=== PATIENT | female | born 1965 | race Caucasian/White ===

== ENCOUNTER 2022-02-27 12:37 | Outpatient (CLI) | payer OTHER, SELFPAY ==
--- NOTE | 2022-02-27 13:00 | CRLHL7_ITS ---
For Patients: As a result of the Century Cures Act, medical imaging exams and procedure reports are released immediately into your electronic medical record. You may view this report before your referring provider. If you have questions, please contact your health care provider. BILATERAL MAMMOGRAM WITH COMPUTER-AIDED DETECTION AND TOMOSYNTHESIS TECHNIQUE: CC and MLO views were obtained. These mammographic images have been obtained using full-field digital technique. These mammographic images were interpreted with the benefit of computer-aided detection. Breast Tomosynthesis was used in this interpretation. COMPARISON FILM: 03/18/21 (LEFT DIAG AND US) FINDINGS: The breasts are heterogeneously dense, which may obscure small masses IMPRESSION: There is no radiographic evidence for malignancy. ASSESSMENT: BI-RADS Category 2: Benign RECOMMENDATION: Routine screening mammogram in 1 year. A lay language report of this examination will be provided to the patient. Saúl Matthews M.D. Diagnostic Radiologist [email or web address] PRANEETH/Dictated by: Saúl Matthews MD @ 03/17/2022 9:22:00 AM (Electronically Signed)
== END 2022-02-27 12:38 | disposition home or self-care (01) ==
LOC: MAMMO 12:38
PROVIDERS: PCP Family Medicine; Visit Provider Family Medicine
DX: Z12.31 Encounter for screening mammogram for malignant neoplasm of breast (principal); R92.2 Inconclusive mammogram
CPT/HCPCS: 77063; 77067

== ENCOUNTER 2022-03-20 08:35 | Outpatient (CLI) | payer OTHER, SELFPAY ==
--- NOTE | 2022-03-20 10:07 | W.ANESCHARGE ---
Anesthesia Charges Start Date/Time Anesthesia Start Date: 03/20/22 Anesthesia Start Time: 09:10 Stop Date/Time Anesthesia Stop Date: 03/20/22 Anesthesia Stop Time: 10:05 Summary Emergency: No
--- NOTE | 2022-03-20 10:29 | W.ANESCHARGE ---
Anesthesia Charges Start Date/Time Anesthesia Start Date: 03/20/22 Anesthesia Start Time: 09:10 Stop Date/Time Anesthesia Stop Date: 03/20/22 Anesthesia Stop Time: 10:05 Summary Emergency: No
== END 2022-03-20 08:36 | disposition home or self-care (01) ==
LOC: OP CLINIC 08:36
PROVIDERS: PCP Family Medicine; Visit Provider Surgery
DX: Z12.11 Encounter for screening for malignant neoplasm of colon (principal); K63.5 Polyp of colon; K64.8 Other hemorrhoids; Z86.010 Personal history of colon polyps
CPT/HCPCS: 45385; 811; 88305; J2704

== ENCOUNTER 2023-05-05 15:15 | Outpatient (CLI) | payer OTHER, SELFPAY ==
--- NOTE | 2023-05-05 15:20 | CRLHL7_ITS ---
For Patients: As a result of the Century Cures Act, medical imaging exams and procedure reports are released immediately into your electronic medical record. You may view this report before your referring provider. If you have questions, please contact your health care provider. BILATERAL SCREENING MAMMOGRAM WITH COMPUTER-AIDED DETECTION AND TOMOSYNTHESIS TECHNIQUE: CC and MLO views were obtained. These mammographic images have been obtained using full-field digital technique. These mammographic images were interpreted with the benefit of computer-aided detection. Breast Tomosynthesis was used in this interpretation. COMPARISON FILM: 02/27/22, 03/18/21 (LT). FINDINGS: The breasts are heterogeneously dense, which may obscure small masses IMPRESSION: There is no radiographic evidence for malignancy. ASSESSMENT: BI-RADS Category 1: Negative RECOMMENDATION: Routine screening mammogram in 1 year. A lay language report of this examination will be provided to the patient. Saúl Matthews M.D. Diagnostic Radiologist [email or web address] PRANEETH/Dictated by: Saúl Matthews MD @ 05/06/2023 11:57:00 AM (Electronically Signed)
== END 2023-05-05 15:16 | disposition home or self-care (01) ==
LOC: MAMMO 15:18
PROVIDERS: PCP Family Medicine; Visit Provider Family Medicine
DX: Z12.31 Encounter for screening mammogram for malignant neoplasm of breast (principal); R92.2 Inconclusive mammogram
CPT/HCPCS: 77063; 77067

== ENCOUNTER 2023-05-19 09:14 | Outpatient (CLI) | payer OTHER, SELFPAY | END 2023-05-19 09:15 | disposition home or self-care (01) | PROVIDERS: PCP Family Medicine; Visit Provider Family Medicine | DX: Z00.00 Encounter for general adult medical examination without abnormal findings (principal); E78.00 Pure hypercholesterolemia, unspecified; Z86.39 Personal history of other endocrine, nutritional and metabolic disease | CPT/HCPCS: 80053; 80061; 82306 ==

== ENCOUNTER 2024-08-23 15:27 | Outpatient (CLI) | payer OTHER, SELFPAY ==
--- NOTE | 2024-08-23 16:00 | CRLHL7_ITS ---
For Patients: As a result of the Century Cures Act, medical imaging exams and procedure reports are released immediately into your electronic medical record. You may view this report before your referring provider. If you have questions, please contact your health care provider. BILATERAL SCREENING MAMMOGRAM WITH COMPUTER-AIDED DETECTION AND TOMOSYNTHESIS TECHNIQUE: CC and MLO views were obtained. These mammographic images have been obtained using full-field digital technique. These mammographic images were interpreted with the benefit of computer-aided detection. Breast Tomosynthesis was used in this interpretation. COMPARISON FILM: 05/05/23, 02/27/22, 03/18/21. FINDINGS: The breasts are heterogeneously dense, which may obscure small masses. IMPRESSION: There is no radiographic evidence for malignancy. ASSESSMENT: BI-RADS Category 1: Negative RECOMMENDATION: Routine screening mammogram in 1 year. A lay language report of this examination will be provided to the patient. Saúl Matthews M.D. Diagnostic Radiologist [email or web address] SP/Dictated by: Saúl Matthews MD @ 08/24/2024 9:48:00 AM (Electronically Signed)
== END 2024-08-23 15:28 | disposition home or self-care (01) ==
LOC: MAMMO 15:28
PROVIDERS: PCP Family Medicine; Visit Provider Family Medicine
DX: Z12.31 Encounter for screening mammogram for malignant neoplasm of breast (principal); R92.333 Mammographic heterogeneous density, bilateral breasts
CPT/HCPCS: 77063; 77067

== ENCOUNTER 2024-09-05 10:06 | Outpatient (CLI) | payer OTHER, SELFPAY | END 2024-09-05 10:07 | disposition home or self-care (01) | PROVIDERS: PCP Family Medicine; Visit Provider Family Medicine | DX: Z00.00 Encounter for general adult medical examination without abnormal findings (principal); E78.00 Pure hypercholesterolemia, unspecified; N95.1 Menopausal and female climacteric states; R23.2 Flushing; Z86.32 Personal history of gestational diabetes; Z13.21 Encounter for screening for nutritional disorder | CPT/HCPCS: 80053; 80061; 82306; 82671; 83001; 83002; 84144 ==

== ENCOUNTER 2025-01-28 20:04 | Emergency (ER) | payer OTHER, SELFPAY ==
--- OUTSIDE RECORDS SUMMARY | 2017-03-18 11:00 | XMS_ITS | Continuity of Care Document ---
Author Organization [facility] Address [address] [address] [place] [address] Phone Care Team Providers Care Jack Machine Operator Name Role Phone Link Neil WOODS Unavailable Unavailable Allergies, Adverse Reactions, Alerts Substance Reaction Status Criticality Sulfa (Sulfonamide Antibiotics) Active No Information Medications Medication Instructions Dosage Effective Dates (start - stop) Status Comments DHEA 25 mg capsule - Active progesterone micronized 100 mg capsule take 2 capsule by oral route every day in the evening 200 MG - Active multivitamin tablet take 1 tablet by ORAL route every day 1 tablet - Active MiralaxBisacodylMagCit Colon Prep Use as directed - No Longer Active MiralaxBisacodylMagCit Colon Prep Use as directed - No Longer Active Procedures Procedure Date Colonoscopy Flex; W/remov Les- 17 Level Iv-surg Path Gross/micro 17 Breath Hydrogen Test Offic/outpt E&m Estab Mod-hi 2 12 Routine Serum Collection [id number] Bld Ct; Hg/pltlt Ct Auto/compl 12 Thyroid Stim Hormone Colonoscopy Flex; W/bx 1/mx Level Iv-surg Path Gross/micro 11 Advance Directives Directive Yes / No Effective Date File Name No Information Encounters Encounter Description Practice Location Reason(s) For Visit Diagnoses Date Provider Providers Copied on Encounter [facility], [address] [address], [place], [id number], [place] tel:[phone] [place] [facility] Colorectal polyp detected on colon[facility]Int [facility] for screening for malignant neoplasm of colonBenign neoplasm of descending colonPersonal history of colonic polyps Link MD Trejo. [address] [place] [address], [id number], [place]. tel:[phone] Referring Provider: Haley Ngo, [address] [place] [address], [address]. tel:[phone] [facility], [address] [address], [place], [id number], [place] tel:[phone] No Information 7 No Information Referring Provider: Haley Ngo, [address] [place] [address], [address]. tel:[phone] [facility], [address] [address], [place], [id number], [place] tel:[phone] [facility] No Information Link MD Trejo. [address] [place] [address], [place], [id number], [place]. tel:[phone] Referring Provider: Referral Self, USE FOR SELF REFERRALS. [facility], [address] [address], [place], [id number], [place] tel:[phone] [facility] DiarrheaFlatul /eructat/gas Pain 2 No Information Referring Provider: Referral Self, USE FOR SELF REFERRALS. Offic/outpt E&m Estab Mod-hi 2 [facility], [address] [address], [place], [id number], [place] tel:[phone] [facility] Abdominal pain (chief complaint) Diarrhea (chief complaint) DiarrheaFlatul /eructat/gas Pain 2 No Information Referring Provider: Referral Self, USE FOR SELF REFERRALS. [facility], [address] [address], [place], [id number], [place] tel:[phone] Nicole [facility] Polyp-intes/re ct/stom-unc BehColon Cancer ScreeningBenig n Neoplasm ColonColon Cancer ScreeningBenig n Neoplasm Colon Filemon Ibanez. [address] [facility] [address], [place], [place], [id number], . tel:[phone] Referring Provider: Referral Self, USE FOR SELF REFERRALS. Family History Family Member Type Diagnosis Age At Onset First degree family history Problem (finding) Cancer, breast First degree family history Problem (finding) celiac disease First degree family history Problem (finding) No history of Cancer, colon First degree family history Problem (finding) No history of Crohn's First degree family history Problem (finding) No history of Ulcerative Colitis First degree family history Problem (finding) alcoholism First degree family history Problem (finding) peptic ulceration First degree family history Problem (finding) cancer of the esophagus First degree family history Problem (finding) No Family history of No history of Colon Polyps Payers Payer name Insurance type Covered green party ID Authoriza tion(s) No Information Social History Type Description Quantity Date Captured Comments Alcohol Use Details Unknown Caffeine Use Details Unknown Tobacco Use Status No Information Smoking Status Never smoker Sex Female Vital Signs Date / Time: Height Weight BMI Pulse Rate Blood Pressure Temperature Respiratory Rate Body Surface Area Head Circumference Head Circ. Percentile Wt./Jake. Percentile BMI percentile Pulse Ox Inhaled Ox 3:34 PM 62.00 in 56.240 kg (124.00 lbs) 22.7 0 kg/m eter (2) 82 /min 115/77 mm[Hg] 0.00 F 16 /min 99 % Chief Complaint And Reason For Visit No Information Reason For Referral Reason For Referral No Information History Of Present Illness Encounter Date Complaint History Of Prese nt Illness No Information Functional Status Date Functional Assessmen t No Information Instructions Date Instruction Additional Infor smitha Colon Cancer Prevention Related to Colorectal polyp detected on colonoscopy Colon Polyps Related to Color ectal polyp detected on colonoscopy Hemorrhoids Related to Color ectal polyp detected on colonoscopy High Fiber Diet Related to Color ectal polyp detected on colonoscopy Assessments Type Assessment Date assessment Colorectal polyp detected on col onoscopy assessment Internal hemorrhoids Patient Care Teams Name Effective Dates (start - stop) Status Members No Information
--- OUTSIDE RECORDS SUMMARY | 2017-03-18 11:00 | XMS_ITS | Continuity of Care Document ---
Author Organization [facility] Address [address] [address] [place] [address] Phone Care Team Providers Care Button Breaker Name Role Phone Link Neil WOODS Unavailable [...] Diagnoses Date Provider Providers Copied on Encounter [facility], [address] [address], [place], [id number], [place] tel:[phone] [place] [facility] Colorectal polyp detected on colonoscopyInt [facility] oun[facility] for screening for malignant neoplasm of colonBenign neoplasm of descending colonPersonal history of colonic polyps Link MD Trejo. [address] [place] [address], [id number], [place]. tel:[phone] Referring Provider: Haley Ngo, [address] [place] [address], [address]. tel:[phone] [facility], [address] [address], [place], [id number], [place] tel:[phone] No Information 7 No Information Referring Provider: Haley Ngo, [address] [place] [address], [address]. tel:[phone] [facility], [address] [address], [place], [id number], [place] tel:[phone] [facility] No Information Link MD Trejo. [address] [place] [address], [place], [id number], [place]. tel:[phone] Referring Provider: Referral Self, USE FOR SELF REFERRALS. [facility], [address] [address], [place], [id number], [place] tel:[phone] [facility] DiarrheaFlatul /eructat/gas Pain 2 No Information Referring Provider: Referral Self, USE FOR SELF REFERRALS. Offic/outpt E&m Estab Mod-hi 2 [facility], [address] [address], [place], [id number], [place] tel:[phone] [facility] Abdominal pain (chief complaint) Diarrhea (chief complaint) DiarrheaFlatul /eructat/gas Pain 2 No Information Referring Provider: Referral Self, USE FOR SELF REFERRALS. [facility], [address] [address], [place], [id number], [place] tel:[phone] Nicole [facility] End[facility] Polyp-intes/re ct/stom-unc BehColon Cancer ScreeningBenig n Neoplasm ColonColon Cancer ScreeningBenig n Neoplasm Colon Filemon Ibanez. [address] [facility] [address], [place], [place], [id number], . tel:[phone] Referring Provider: Referral Self, USE FOR SELF [...] Polyps Payers Payer name Insurance type Covered alliance party ID Authoriza tion(s) No Information Social [...]
--- OUTSIDE RECORDS SUMMARY | 2025-01-28 20:06 | XMS_ITS | Encounter Summary ---
Author Organization [facility] [employer] [facility] Address [address] [place] [address] Care Team Providers Care Carpet Inspector Name Role Phone Tariq Vincent MD Primary Care Provider [phone] Encounter Details Date Type Department Care Team (Late st Contact Info) Description 06/04/2023 [facility] [address] [place], [place] [id number] Social History Tobacco Use Types Packs/Day Years Used Date Smoking Tobacco: Never Smokeless Tobacco: Never Depression (PHQ-9) Answer Date Recorded Last PHQ-9 Score Not on file 02/04/2022 Thoughts of self harm Not on file 02/04/2022 Comments Unknown Sex and Gender Information Value Date Recorded Sex Assigned at Not on file 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
--- OUTSIDE RECORDS SUMMARY | 2025-01-28 20:06 | XMS_ITS | Encounter Summary ---
Author Organization [employer] [facility] Address [address] [place] [address] Care Team Providers Care Print Buyer Name Role Phone Unknown, Provider Primary Care Provider Tariq Bryan MD Primary Care Provider Tariq Vincent MD Primary Care Provider [phone] Encounter Details Date Type Department Care Team (Late st Contact Info) Description 02/04/[address] [address] Social History Tobacco Use Types Packs/Day Years Used Date Smoking Tobacco: Never Assessed Depression (PHQ-9) Answer Date Recorded Last PHQ-9 Score Not on file 02/04/2022 Thoughts of self harm Not on file 02/04/2022 Comments Unknown Sex and Gender Information Value Date Recorded Sex Assigned at Not on file Legal Sex 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 [address] PCP - General 02/04/22 02/22/23 Tariq Vincent MD [address] [place] [address] PCP - General Family Medicine 02/23/23 06/03/23 Tariq Vincent MD [address] [place] [address] PCP - General Family Medicine 06/04/23 documented as of this encounter Additional Source Comments PLEASE NOTE: Replies to this message will not be received.[facility] and [facility]
--- OUTSIDE RECORDS SUMMARY | 2025-01-28 20:06 | XMS_ITS | Referral Summary ---
Author Organization [employer] [facility] Address [address] [place] [address] Care Team Providers Care Supervisor Unloading Name Role Phone Tariq Vincent MD Primary Care Provider [phone] Allergies Active Allergy Reactions Criticality Noted Date Comments Sulfa (Sulfonamide Antibiotics) Rash Medium 01/16 Medications other (unlisted) Active Nutrients Centrum Silver 1 tablet daily DHEA- increase 5 mg daily in AM SL Multi Vit. Daily NuAdapt Vit. D3 10,000 IU daily Vitamin B Complex 1 daily Active bi-estrogen (BIEST) 5 mg/g, testosterone 3 mg/g topical cream/gelIndicati ons:Menopause 0.5gm to thin skin area qam, as dir. 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) 02/04/2022 Weight gain 02/04/2022 Estrogen excess 02/04/2022 Social History Tobacco Use Types Packs/Day Years Used Date Smoking Tobacco: Never Smokeless Tobacco: Never Tobacco Cessation:Counseling Given: Not Answered Depression (PHQ-9) Answer Date Recorded Last PHQ-9 Score Not on file 02/04/2022 Thoughts of self harm Not on file 02/04/2022 Comments Unknown Sex and Gender Information Value Date Recorded Sex Assigned at Not on file 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
--- OUTSIDE RECORDS SUMMARY | 2025-01-28 20:06 | XMS_ITS | Clinical Summary ---
Author Organization [employer] Address [address] [place] [address] Care Team Providers Care Building Service Worker Name Role Phone No Ref-Primary, Physician Primary Care Provider Allergies Active Allergy Reactions Criticality Noted Date Comments Sulfa Antibiotics 09/28/2022 Itching and rash Medications GAVILYTE-G 236 g suspension DRINK 240 ML (8 OZ) EVERY 10 MINUTES FOLLOWING INSTRUCTIONS IN CLINIC 2 Active Hormone Cream Base (HRT CREAM BASE) CREA Topical, 0 Refill(s), Type: Maintenance 1 Active Immunizations Immunization Administration Dates Next Due TD,PF 7+ (Tenivac) 12/11/2003 Social History Tobacco Use Types Packs/Day Years Used Date Smoking Tobacco: Never Passive Smoke Exposure: Never Smokeless Tobacco: Never Tobacco Cessation:Counseling Given: Not Answered Adolescent Education Answer Date Record ed Getting School Help Needed Not on file 05/10 Comments No Sex and Gender Information Value Date Recorded Sex Assigned at Not on file Legal Sex Female 3:21 AM AUTO LEASING MANAGER Gender Identity Not on file Sexual Orientation Not on file Last Filed Vital Signs Vital Sign Reading Time Taken Comments Blood Pressure 134/84 06/07/2023 2:37 PM CDT Pulse 80 06/07/2023 2:37 PM CDT Temperature 36.5 C (97.7 F) 06/07/2023 2:37 PM CDT Respiratory Rate 16 09/28/2022 2:09 PM AUTO LEASING MANAGER Oxygen Saturation 100% 06/07/2023 2:37 PM CDT Inhaled Oxygen Concentration - - Weight - - Height - - Body Mass Index - - Plan of Treatment Health Maintenance Due Date Last Done Comments ADVANCE CARE PLANNING 1965 ANNUAL REVIEW OF HM ORDERS 1963 CT COLONOGRAPHY 1963 FIT 1963 FLEX SIG 1965 MAMMO SCREENING 1963 sDNA (Cologuard) 1965 YEARLY PREVENTIVE VISIT 11/28/1966 COLONOSCOPY 11/28/1973 COLORECTAL CANCER SCREENING 11/28/1973 HIV SCREENING 11/28/1978 HEPATITIS C SCREENING 11/28/1981 DIABETES SCREENING 09/21/2005 09/21/2002 PAP 09/21/2005 09/21/2002 LIPID 09/21/2007 09/21/2002 PNEUMOCOCCAL VACCINE 50+ YEARS (2 of 2 - PCV) 05/14/2019 05/14/2018, 02/24/2018 COVID-19 VACCINE ( season) 2024 05/19/2023, 05/02/2022, 07/10/2021, Additional history exists PHQ-2 (once per calendar year) 2024 INFLUENZA VACCINE (Season Ended) 2025 05/19/2023, 05/02/2022, 06/05/2021, Additional history exists DTAP/TDAP/TD VACCINE (3 - Td or Tdap) 03/07/2032 03/07/2022, 03/22/2014, 12/11/2003, Additional history exists RSV VACCINE (1 - 1-dose 75+ series) 11/28/2038 ZOSTER VACCINE Completed 05/14/2018, 02/24/2018 HPV VACCINE Aged Out No longer eligi ble based on patient's age to complete this topic MENINGITIS VACCINE Aged Out No longer eligible based on patient's age to complete this topic Procedures Procedure Name Priority Date/Time Associated Diagnosis Comments HCL GLUCOSE Routine 09/21/2002 1:53 PM AUTO LEASING MANAGER CL AFF A.M.A. LIPID PANEL Routine 09/21/2002 1:53 PM AUTO LEASING MANAGER HCL PAP THIN LAYER SCREEN Routine 09/21/2002 12:00 AM AUTO LEASING MANAGER from Last 3 Months or Most Recently Relevant to Health Maintenance Results * GLUCOSE (09/21/2002 1:53 PM AUTO LEASING MANAGER) Glucose 80 60 - 115 mg/dL [facility] 09/21/2002 1:53 PM AUTO LEASING MANAGER 09/21/2002 1:58 PM AUTO LEASING MANAGER Jp Arroyo MD LABORATORY Final Result Performing Organization Address [facility] de Phone Number [address] [address] * (ABNORMAL) A.M.A. LIPID PANEL (09/21/2002 1:53 PM AUTO LEASING MANAGER) Cholesterol 208(H) <200 mg/dL [facility] Comment: Cholesterol Reference Range: <200 The NCEP recommends further evaluation of: 1. Patients with cholesterol greater than 200 mg/dL if additional risk factors are present. 2. All patients with a cholesterol greater than 240 mg/dL. Triglycerides 78 <150 mg/dL [facility] HDL Cholesterol 64 >40 mg/dL [facility] LDL Cholesterol Calculated 128 <130 mg/dL [facility] VLDL-Cholesterol 16 0 - 30 mg/dL [facility] Cholesterol/HDL Ratio 3 0 - 5 [facility] 09/21/2002 1:53 PM AUTO LEASING MANAGER 09/21/2002 1:58 PM AUTO LEASING MANAGER Jp Arroyo MD LABORATORY Final Result Performing Organization Address [facility] Co de Phone Number [address] [address] * PAP THIN LAYER SCREEN (09/21/2002 12:00 AM AUTO LEASING MANAGER) Copath Report Patient Name: JULIANA AGGARWAL MR#: [id number] Specimen #: [id number] Collected: 09/21/02 Received: 09/29/02 Reported: 10/05/02 08:22 Ordering Phy(s): JP ARROYO SPECIMEN/STAIN PROCESS: Pap thin layer prep screening Pap-Cyto x 1, Reflex HPV x 1 SOURCE: Vaginal Pap thin layer prep screening SPECIMEN ADEQUACY: Satisfactory for evaluation. -Transitional zone component absent. CYTOLOGIC INTERPRETATION: Negative for Intraepithelial Lesion or Malignancy Electronically signed out by: MICHAEL Lara (ASCP) Processed and screened at [facility] CLINICAL HISTORY: Complete Hysterectomy, COPATH 09/21/2002 09/29/2002 3:5 8 PM AUTO LEASING MANAGER Jp Arroyo MD LABORATORY Final Result COPATH from Last 3 Months or Most Recently Relevant to Health Maintenance Insurance [employer] Care Teams Building Service Worker Relationship Specialty Start Date End Date No Ref-Primary, Physician PCP - General 06/07/23
--- OUTSIDE RECORDS SUMMARY | 2025-01-28 20:06 | XMS_ITS | Encounter Summary ---
Author Organization [facility] Address [address] [place] [address] Care Team Providers Care Fender Mechanic Name Role Phone Tariq Vincent MD Primary Care Provider [phone] Tariq Vincent MD Primary Care Provider [phone] Encounter Details Date Type Department Care Team (Late st Contact Info) Description 03/24/[address] 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 Gender Identity Not on file Sexual Orientation Not on file documented as of this encounter Plan of Treatment Not on file documented as of this encounter Procedures Procedure Name Priority Date/Time Associated Diagnosis Comments LAB/OUTSIDE LAB - S 03/24/2023 9:34 AM CDT documented in this encounter Results * LAB/OUTSIDE LAB - S (03/24/2023 9:34 AM CDT) us Smph Scan PROCEDURE NOTE Final Result documented in this encounter Visit Diagnoses Not on filedocumented in this encounter Care Teams Fender Mechanic Relationship Specialty Start Date End Date Tariq Vincent MD [address] [place] [address] PCP - General Family Medicine 02/23/23 06/03/23 Tariq Vincent MD [address] [place] [address] PCP - General Family Medicine 06/04/23 documented as of this encounter Additional Source Comments PLEASE NOTE: Replies to this message will not be received.[facility] and [facility]
--- OUTSIDE RECORDS SUMMARY | 2025-01-28 20:06 | XMS_ITS | Encounter Summary ---
Author Organization [facility] Address [address] [place] [address] Care Team Providers Care Heat Plant Specialist Name Role Phone Unknown, Provider Primary Care Provider Tariq Bryan MD Primary Care Provider [phone] Tariq Vincent MD Primary Care Provider [phone] Encounter Details Date Type Department Care Team (Late st Contact Info) Description 01/08/2022 Scan [facility] [address], [place] [address] Social History Tobacco Use Types Packs/Day Years Used Date Smoking Tobacco: Never Assessed Comments Unknown Sex and Gender Information Value Date Recorded Sex Assigned at Not on file 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 [address] PCP - General 02/04/22 02/22/23 Tariq Vincent MD [address] [place] [address] PCP - General Family Medicine 02/23/23 06/03/23 Tariq Vincent MD [address] [place] [address] PCP - General Family Medicine 06/04/23 documented as of this encounter Additional Source Comments PLEASE NOTE: Replies to this message will not be received.[facility] and [facility]
--- OUTSIDE RECORDS SUMMARY | 2025-01-28 20:06 | XMS_ITS | Clinical Summary ---
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 Gender Identity Not on file Sexual Orientation Not on file Plan of Treatment Health Maintenance Due Date Last Done Comments HPV Testing 1965 Hepatitis C Testing 1965 Depression Screening 1975 HIV Screen 11/28/1978 Cervical Cancer Screening 11/28/1984 Lipids Standard 11/28/[address] Colonography 11/28/2008 Colonoscopy 11/28/2008 Colorectal Cancer Screening 11/28/2008 Fecal Immunochemical DNA Test (FIT-DNA) 11/28/2008 Fecal Immunochemical Test (FIT) 11/28/2008 Pneumococcal Vaccine (50+ Years) (2 of 2 - PCV) 05/14/2019 05/14/2018, 02/24/2018 COVID-19 Vaccine ( - season) 2024 05/19/2023, 05/02/2022, 07/10/2021, Additional history exists Influenza Vaccine (Season Ended) 2025 05/19/2023, 05/02/2022, 06/05/2021, Additional history exists DTaP/Tdap/Td Vaccines (5 - Td or Tdap) 03/07/2032 03/07/2022, 03/22/2014, 12/11/2003, Additional history exists Respiratory Syncytial Virus (RSV) Vaccine (1 - 1-dose 75+ series) 11/28/2038 Varicella Zoster Sequential Completed 05/14/2018, 0 02/24/2018 HIB Vaccines Aged Out No longer eligi ble based on patient's age to complete this topic HPV Vaccines Aged Out No longer eligi ble based on patient's age to complete this topic Hepatitis A Vaccines Aged Out No long er eligible based on patient's age to complete this topic Hepatitis B Vaccines Aged Out No long er eligible based on patient's age to complete this topic Meningococcal B Vaccines Aged Out No longer eligible based on patient's age to complete this topic Meningococcal Vaccines Aged Out No lo nger eligible based on patient's age to complete this topic Insurance [employer] Care Teams Wick And Base Assembler Relationship Specialty Start Date End Date Tariq Vincent MD [address] [place] [address] PCP - General Family Medicine 06/04/23 Additional Source Comments PLEASE NOTE: Replies to this message will not be received.[facility] and [facility]
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
[2025-01-28 20:18] VITALS: BP 144/85; PULSE 90; RESP 18; TEMP 36.4; O2SAT 98; BMI 21.9
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
[2025-01-28 21:36] LABS: Creatinine, Point-of-Care* 0.8 mg/dl (0.6-1.3)
[2025-01-28 23:07] LABS: Basophils Absolute Auto 0.03 K/uL (0.00-0.30); Basophils Percent Auto 0.3 % (0.0-3.0); Eosinophils Percent Auto 1.9 % (0.0-7.0); Hematocrit 40.3 % (33.0-51.0); Hemoglobin* 13.2 gm/dL (12.0-16.0); Immature Granulocytes Abs Auto 0.15 K/uL (0.00-0.30); Immature Granulocytes Pct Auto 1.5 %; Mean Corpuscular HGB Conc 33 gm/dL (32-36); Mean Corpuscular Hemoglobin 33 pg (26-34); Mean Corpuscular Volume 101 fL (80-100); Monocytes Percent Auto 8.3 % (0.0-11.0); Neutrophils Absolute Auto 7.41 K/uL (1.7-7.0); Platelet Count* 336 K/uL (140-440); RDW Coefficient of Variation % 11.7 % (11.5-15.5); Red Blood Count 3.99 m/uL (4.00-5.20); White Blood Count* 10.29 K/uL (4.50-11.00)
[2025-01-28] MEDS: KETOROLAC 15 MG/ML inj IVP (23:08)
[2025-01-28 23:17] LABS: Slide Review Reflex No
== END 2025-01-28 23:37 | disposition home or self-care (01) ==
PROVIDERS: Emergency Provider Family Medicine; PCP Family Medicine
DX: S42.018A Nondisplaced fracture of sternal end of left clavicle, initial encounter for closed fracture (principal); S22.21XA Fracture of manubrium, initial encounter for closed fracture; V19.3XXA Pedal cyclist (driver) (passenger) injured in unspecified nontraffic accident, initial encounter; R91.1 Solitary pulmonary nodule
CPT/HCPCS: 36415; 70450; 71046; 71260; 72125; 82565; 84484; 85025; 93005; 96374; 99284; 99285; J1885; Q9967

== ENCOUNTER 2025-05-04 07:04 | Outpatient (CLI) | payer OTHER, SELFPAY ==
--- NOTE | 2025-05-04 09:20 | P.ANES_ITS ---
Anesthesia Charges Start Date/Time Anesthesia Start Date: 05/04/25 Anesthesia Start Time: 07:57 Stop Date/Time Anesthesia Stop Date: 05/04/25 Anesthesia Stop Time: 08:30 Coding CPT Codes CPT Codes: ANES LWR INTST NDIA NOS - 73565 ([id number]) P1 - NORMAL HEALTHY PATIENT, QK - VALUE ENGINEER 2-4 CNCRNT ANES PROC
--- NOTE | 2025-05-04 09:20 | W.ANESCHARGE ---
Anesthesia Charges Start Date/Time Anesthesia Start Date: 05/04/25 Anesthesia Start Time: 07:57 Stop Date/Time Anesthesia Stop Date: 05/04/25 Anesthesia Stop Time: 08:30 Coding CPT Codes CPT Codes: ANES LWR INTST NDWV NOS - 48579 ([id number]) P1 - NORMAL HEALTHY PATIENT, QK - COMMISSION SPECIALIST 2-4 CNCRNT ANES PROC
--- NOTE | 2025-05-04 09:27 | P.ANES_ITS ---
Anesthesia Charges Start Date/Time Anesthesia Start Date: 05/04/25 Anesthesia Start Time: 07:57 Stop Date/Time Anesthesia Stop Date: 05/04/25 Anesthesia Stop Time: 08:30 Coding CPT Codes CPT Codes: SHERRILL LWR INTST NDVT NOS - 40847 ([id number]) P1 - NORMAL HEALTHY PATIENT, QK - HOG BUYER 2-4 CNCRNT ANES PROC, QX - FIRST HELPER SVC W/ MED DIRECTION
--- NOTE | 2025-05-04 09:27 | W.ANESCHARGE ---
Anesthesia Charges Start Date/Time Anesthesia Start Date: 05/04/25 Anesthesia Start Time: 07:57 Stop Date/Time Anesthesia Stop Date: 05/04/25 Anesthesia Stop Time: 08:30 Coding CPT Codes CPT Codes: SHERRILL LWR INTST NDOH NOS - 39329 ([id number]) P1 - NORMAL HEALTHY PATIENT, QK - DAMAGE CUTTER 2-4 CNCRNT ANES PROC, QX - PROOF CLERK SVC W/ MED DIRECTION
== END 2025-05-04 07:05 | disposition home or self-care (01) ==
LOC: OP CLINIC 07:05
PROVIDERS: PCP Family Medicine; Visit Provider Surgery
DX: Z12.11 Encounter for screening for malignant neoplasm of colon (principal); Z86.0100 Personal history of colon polyps, unspecified; D12.1 Benign neoplasm of appendix; D12.2 Benign neoplasm of ascending colon; D12.3 Benign neoplasm of transverse colon
CPT/HCPCS: 00811; 00812; 45385; 88305; J2704

== ENCOUNTER 2025-08-01 10:50 | Outpatient (CLI) | payer OTHER, SELFPAY ==
--- NOTE | 2025-08-01 11:00 | CRLHL7_ITS ---
For Patients: As a result of the Century Cures Act, medical imaging exams and procedure reports are released immediately into your electronic medical record. You may view this report before your referring provider. If you have questions, please contact your health care provider. Indication: FOLLOW UP LUNG NODULE Technique: Noncontrast CT chest Please note that all CT scans at this facility use dose modulation, iterative reconstruction, and/or weight-based dosing when appropriate to reduce radiation dose to as low as reasonably achievable. Comparison: 01/28/2025 Findings: Tiny calcified nodules are present within the right lung, unchanged. No suspicious pulmonary nodule. No infiltrate or edema. No effusion or pneumothorax. Similar tiny nodules within the left lung are also unchanged. Biapical pleural-parenchymal scarring. Mild chronic wedging of T6. Healing nondisplaced manubrial fracture. No adenopathy. Visualized thyroid is normal. Healed fracture of the left medial clavicle. Impression: No suspicious pulmonary nodule. Stable tiny nodules are present bilaterally related to granulomatous change. Please note that all CT scans at this facility use dose modulation, iterative reconstruction, and/or weight-based dosing when appropriate to reduce radiation dose to as low as reasonably achievable. Dictated by Saúl Matthews MD @ 08/01/2025 11:58:54 AM (Electronically Signed)
== END 2025-08-01 10:51 | disposition home or self-care (01) ==
LOC: CT 10:50
PROVIDERS: PCP Family Medicine; Visit Provider Family Medicine
DX: R91.8 Other nonspecific abnormal finding of lung field (principal); Z09 Encounter for follow-up examination after completed treatment for conditions other than malignant neoplasm
CPT/HCPCS: 71250